=== PATIENT | male | born 1965 | race Caucasian/White ===

== ENCOUNTER 2017-12-15 21:43 | Inpatient (IN) | payer MEDICAID, OTHER, SELFPAY ==
[~2017-12-15] VITALS: Ht 182.9 cm; Wt 106.9 kg
[2017-12-15] MEDS ORDERED: SODIUM CHLORIDE 0.9% 1,000ML IVBOLUS ONE ×2 (22:30→23:00)
[2017-12-15 22:53] LABS: MEAN CORPUSCULAR HEMOGLOBIN 31.6 pg (27.5-34.5); MEAN CORPUSCULAR HGB CONC 34.6 g/dL (33.2-36.2); MEAN CORPUSCULAR VOLUME 91.3 fL (81-97); RED BLOOD COUNT 2.45 x10^6/uL (4.38-5.82); RED CELL DISTRIBUTION WIDTH 13.9 % (9.4-14.8)
[2017-12-15] MEDS ORDERED: CYCL5TAB PO (22:54)
[2017-12-15] MEDS ORDERED: GLYB2.5T2 PO (22:54)
[2017-12-15] MEDS ORDERED: LISI2.5T PO (22:54)
[2017-12-15] MEDS ORDERED: ATOR-2 PO (22:54)
[2017-12-15] MEDS ORDERED: AMLO5TAB2 PO (22:54)
[2017-12-15] MEDS ORDERED: ASPI-515 PO (22:54)
[2017-12-15] MEDS ORDERED: GABA300C10 PO (22:54)
[2017-12-15 22:55] LABS: ALBUMIN 3.1 g/dL (3.4-5.0); ANION GAP 9 mmol/L (5-15); CALCIUM 7.2 mg/dL (8.5-10.1); CHLORIDE 101 mmol/L (98-107)
[2017-12-15 23:01] LABS: ALANINE AMINOTRANSFERASE 32 U/L (12-78); ALKALINE PHOSPHATASE 145 U/L (45-117); BILIRUBIN,TOTAL 0.5 mg/dL (0.2-1.0); CREATININE 2.08 mg/dL (0.7-1.3); TOTAL PROTEIN 6.5 g/dL (6.4-8.2); TROPONIN I < 0.015 ng/mL (0.000-0.045)
[2017-12-15 23:06] LABS: MICROSCOPIC AUTO
[2017-12-15 23:07] LABS: CULTURE INDICATED? NO
[2017-12-15 23:14] LABS: MD YES; MEAN PLATELET VOLUME 9.7 fL (7.4-10.4); PLATELET COUNT 103 x10^3/uL (130-400)
[2017-12-15 23:26] LABS: BAND#(MANUAL) 0.05 x10^3/uL; BANDS%(MANUAL) 1 % (0-7); BASOS#(MANUAL) 0.05 x10^3/uL (0-0.1); BASOS% (MANUAL) 1 % (0-1); EOS#(MANUAL) 0.27 x10^3/uL (0.0-0.4); EOS% (MANUAL) 6 % (1-7); LYMPH#(MANUAL) 0.54 x10^3/uL (1-3.4); LYMPHS% (MANUAL) 12 % (22-44); METAMYELOCYTES# (MANUAL) 0.05 x10^3/uL (0-0); METAMYELOCYTES% (MANUAL) 1 % (0-1); MONOS#(MANUAL) 0.27 x10^3/uL (0.3-2.7); MONOS% (MANUAL) 6 % (2-9); MYELOCYTES# (MANUAL) 0.05 x10^3/uL (0-0); MYELOCYTES% (MANUAL) 1 % (0-0); REACTIVE LYMPHS # (MANUAL) 0.14 x10^3/uL (0-0); REACTIVE LYMPHS % (MANUAL) 3 % (0-0); SEG#(MANUAL) 3.11 x10^3/uL (1.8-6.8); SEGS% (MANUAL) 69 % (42-75)
[2017-12-15 23:28] LABS: POLYCHROMASIA 1+
[2017-12-15 23:29] LABS: <PLATELET ESTIMATE> DECREASED; LARGE PLATELETS 1+
[2017-12-16] MEDS ORDERED: ALBUTEROL SULFATE 2.5 MG/3 ML NPPB ONE
[2017-12-16] MEDS ORDERED: INSULIN REGULAR 100 UNITS/ML, 3ML VIAL IVPush ONE
[2017-12-16] MEDS ORDERED: ALBUTEROL SULFATE 2.5 MG/3 ML ONE (00:07)
[2017-12-16] MEDS ORDERED: SODIUM CHLORIDE 0.9% 1,000 ML IV ONE (00:08)
[2017-12-16] MEDS ORDERED: INSULIN REGULAR 100 UNITS/ML, 3ML VIAL ONE (00:14)
[2017-12-16] MEDS ORDERED: ONDANSETRON 2MG/ML, 2ML ONE (00:14)
[2017-12-16] MEDS ORDERED: ONDANSETRON 2MG/ML, 2ML IVPush PRN ×2 (00:30)
[2017-12-16] MEDS ORDERED: POLYETHYLENE GLYCOL 17 GM PACKET PO PRN (00:30)
[2017-12-16] MEDS ORDERED: ATORVASTATIN 80 MG TABLET PO SCH (00:30)
[2017-12-16] MEDS ORDERED: BISACODYL 10 MG SUPP PR PRN (00:30)
[2017-12-16] MEDS ORDERED: ACETAMINOPHEN 325 MG TABLET PO PRN (00:30)
[2017-12-16 01:06] LABS: HEMOGLOBIN A1C 10.1 % (4.2-6.3)
[2017-12-16 01:08] LABS: ACETONE, SERUM Negative (Negative)
[2017-12-16] MEDS: SODIUM CHLORIDE 0.9% 1,000 ML IV SCH ×2 (02:15→07:49)
[2017-12-16 02:30] VITALS: BP 141/72
[2017-12-16] MEDS: INSULIN LISPRO 100 UNITS/ML, PEN SQ-INSULIN SCH ×3 (02:43→12:18)
[2017-12-16 03:14] LABS: ALANINE AMINOTRANSFERASE 28 U/L (12-78); ALBUMIN 2.9 g/dL (3.4-5.0); ANION GAP 8 mmol/L (5-15); CALCIUM 7.3 mg/dL (8.5-10.1); CHLORIDE 107 mmol/L (98-107); CREATININE 1.86 mg/dL (0.7-1.3)
[2017-12-16 03:16] LABS: ALKALINE PHOSPHATASE 135 U/L (45-117); BILIRUBIN,TOTAL 0.4 mg/dL (0.2-1.0); TOTAL PROTEIN 6.1 g/dL (6.4-8.2)
[2017-12-16 03:18] LABS: MEAN CORPUSCULAR HEMOGLOBIN 31.7 pg (27.5-34.5); MEAN CORPUSCULAR HGB CONC 34.7 g/dL (33.2-36.2); MEAN CORPUSCULAR VOLUME 91.4 fL (81-97); RED BLOOD COUNT 2.37 x10^6/uL (4.38-5.82); RED CELL DISTRIBUTION WIDTH 13.7 % (9.4-14.8)
[2017-12-16 03:45] LABS: MD YES
[2017-12-16 03:52] LABS: BAND#(MANUAL) 0.05 x10^3/uL; BANDS%(MANUAL) 1 % (0-7); BASOS#(MANUAL) 0.09 x10^3/uL (0-0.1); BASOS% (MANUAL) 2 % (0-1); EOS#(MANUAL) 0.28 x10^3/uL (0.0-0.4); EOS% (MANUAL) 6 % (1-7); LYMPH#(MANUAL) 0.52 x10^3/uL (1-3.4); LYMPHS% (MANUAL) 11 % (22-44); METAMYELOCYTES# (MANUAL) 0.05 x10^3/uL (0-0); METAMYELOCYTES% (MANUAL) 1 % (0-1); MONOS#(MANUAL) 0.19 x10^3/uL (0.3-2.7); MONOS% (MANUAL) 4 % (2-9); NRBC % (MANUAL) 1 % (0-1); REACTIVE LYMPHS # (MANUAL) 0.14 x10^3/uL (0-0); REACTIVE LYMPHS % (MANUAL) 3 % (0-0); SEG#(MANUAL) 3.38 x10^3/uL (1.8-6.8); SEGS% (MANUAL) 72 % (42-75)
[2017-12-16 03:53] LABS: <PLATELET ESTIMATE> DECREASED; LARGE PLATELETS 1+; MEAN PLATELET VOLUME 9.3 fL (7.4-10.4); PLATELET COUNT 97 x10^3/uL (130-400); POLYCHROMASIA 1+
[2017-12-16] MEDS: HEPARIN 5,000 UNITS/ML, 1ML SQ SCH ×2 (05:00→12:18)
[2017-12-16 07:23] VITALS: BP 145/70
[2017-12-16] MEDS ORDERED: AMLODIPINE 5 MG TABLET PO SCH (09:00)
[2017-12-16] MEDS ORDERED: GABAPENTIN 300 MG CAPSULE PO SCH (09:00)
[2017-12-16] MEDS ORDERED: SENNA/DOCUSATE TABLET PO SCH (09:00)
[2017-12-16] MEDS ORDERED: CYCLOBENZAPRINE 10 MG TABLET PO SCH (09:00)
[2017-12-16] MEDS ORDERED: ASPIRIN 81 MG TABLET EC PO SCH (09:00)
[2017-12-16] MEDS ORDERED: INSULIN GLARGINE 100 UNITS/ML, PEN SQ-INSULIN SCH ×2 (10:00→21:00)
[2017-12-16] MEDS ORDERED: INSU100I13 SQ-INSULIN (15:46)
== END 2017-12-16 17:10 | disposition home or self-care (01) | DRG 637 ==
LOC: ED 12-16 00:25 → EDIP 12-16 00:45 → 3NE 12-16 01:55
PROVIDERS: ADMIT Hospitalist; ATTEND Hospitalist
DX: E11.65 Type 2 diabetes mellitus with hyperglycemia (principal); N17.0 Acute kidney failure with tubular necrosis; E44.0 Moderate protein-calorie malnutrition; E87.1 Hypo-osmolality and hyponatremia; E87.2 Acidosis; J44.1 Chronic obstructive pulmonary disease with (acute) exacerbation; E87.5 Hyperkalemia; F17.200 Nicotine dependence, unspecified, uncomplicated; Z66 Do not resuscitate; D63.8 Anemia in other chronic diseases classified elsewhere; E11.21 Type 2 diabetes mellitus with diabetic nephropathy; E78.5 Hyperlipidemia, unspecified; E86.0 Dehydration; I10 Essential (primary) hypertension; Z91.14 Patient's other noncompliance with medication regimen; Z80.0 Family history of malignant neoplasm of digestive organs; Z82.49 Family history of ischemic heart disease and other diseases of the circulatory system
CPT/HCPCS: 36415; 71045; 80053; 81001; 82010; 82962; 83036; 84484; 85025; 86850; 86900; 93005; 94640; 96361; 96374; 96375; J1644; J2405; J7613; J1815; J7030